=== PATIENT | female | born 1975 | race Caucasian/White ===

== ENCOUNTER 2019-02-04 08:25 | Outpatient (CLI) | payer OTHER ==
--- NOTE | 2019-02-04 10:35 | MMO ---
Right Breast MAMMO Unilat Diag [facility]DI RT+KRISHNA. CLINICAL HISTORY: Patient is 43 years old and is seen for additional evaluation requested at current screening. The patient has no family history of breast cancer. The patient has no personal history of cancer. VIEWS: The views performed were: right craniocaudal spot compression with tomosynthesis; right mediolateral oblique spot compression with tomosynthesis; and right mediolateral with tomosynthesis. FILMS COMPARED: The present examination has been compared to prior imaging studies performed at [facility] on 02/01/2019, and at [facility] on 02/04/2019. MAMMOGRAM FINDINGS: There are scattered fibroglandular densities. There is an oval mass measuring 6 x 7 x 14 mm with obscured margins seen in the upper-outer region of the right breast. Not seen on ultrasound. IMPRESSION: MASS IN THE RIGHT BREAST IS PROBABLY BENIGN. FOLLOW-UP IN 6 MONTHS IS RECOMMENDED. THE RESULTS OF THIS EXAM WERE SENT TO THE PATIENT. ACR BI-RADS Category 3 - Probably benign finding - short interval follow-up suggested. [facility] will notify the patient of the need for additional imaging services. MAMMOGRAPHY NOTE: 1. A negative mammogram report should not delay a biopsy if a dominant of clinically suspicious mass is present. 2. Approximately 10% to 15% of breast cancers are not detected by mammography. 3. Adenosis and dense breasts may obscure an underlying neoplasm.
--- NOTE | 2019-02-04 10:56 | ULT ---
RIGHT BREAST ULTRASOUND LIMITED: Date: 02/04/19 HISTORY: Right breast density in the upper outer aspect on prior mammogram. FINDINGS: The right breast is evaluated from the 9 o'clock to the 12 o'clock position. There is no evidence for solid or cystic mass. There is some asymmetric echogenic glandular tissue. IMPRESSION: No evidence for solid or cystic mass in the right breast to account for the asymmetric density seen o n mammogram. BIRADS Category 3 - Probably benign findings. 6 month follow-up right unilateral diagnostic mammogram is recommended. I do not think that a right breast ultrasound at that time would necessarily need to be scheduled unless the diagnostic mammogram shows a significant change. Discussed with the patient. The facility will notify patient of need for additional imaging services. POS: OFF
== END 2019-02-04 08:26 | disposition home or self-care (01) ==
LOC: BICMAMMO 08:25
PROVIDERS: ATTEND Student in an Organized Health Care Education/Training Program
DX: N63.11 Unspecified lump in the right breast, upper outer quadrant (principal)
CPT/HCPCS: G0279